=== PATIENT | male | born 1990 | race Caucasian/White ===

== ENCOUNTER → 2024-08-03 | Outpatient (CLI) | payer OTHER, SELFPAY ==
--- NOTE | 2024-08-03 08:00 | CT_ITS ---
STUDY: CT MAXILLOFACIAL SINUSES REASON FOR EXAM: Male, 34 years old. CHRONIC SINUSITIS RADIATION DOSAGE (If Supplied By Facility): CTDIvol = ( 33.06 ) mGy, DLP = ( 916.49 ) mGycm TECHNIQUE: The patient was scanned in a multi detector CT scanner. High resolution axial imaging was performed without the administration of intravenous contrast material. Sagittal and coronal images were reconstructed. Individualized dose optimization techniques were used for this CT. COMPARISON: None. FINDINGS: FRONTAL SINUSES: Normal aeration, without mucosal inflammatory disease. ETHMOIDAL SINUSES: Mild mucosal thickening of the bilateral anterior and mid ethmoid air cells without air-fluid levels.. MAXILLARY SINUSES: Mild to moderate bilateral mucosal thickening without air-fluid level. SPHENOIDAL SINUSES: Mucosal thickening of the left sphenoid sinus without air-fluid level There is occlusion of the bilateral maxillary infundibuli due to mucosal thickening with normal uncinate processes, ethmoid bullae, and hiatus semilunaris. 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 Normal bilateral inferior turbinates. Nasal septum is deviated towards the left There is patency of the bilateral nasal airways. The visualized osseous structures are normal. The visualized bilateral orbital contents are normal. CT/Sinus/Facial Bone IMPRESSION: Findings consistent with bilateral chronic maxillary ethmoid and left sphenoid sinusitis. Findings as above. Electronically Signed: Codey Hare MD at 20:48 EST ,
== END | disposition home or self-care (01) ==
LOC: CT 08:00
PROVIDERS: PCP Student in an Organized Health Care Education/Training Program; Referring Provider Otolaryngology; Visit Provider Otolaryngology
DX: J32.9 Chronic sinusitis, unspecified (principal)
CPT/HCPCS: 70486